=== PATIENT | female | born 1985 | race Caucasian/White ===

== ENCOUNTER 2022-08-14 07:35 | Outpatient (CLI) | payer OTHER, SELFPAY | END 2022-08-14 07:36 | disposition home or self-care (01) | LOC: NFLDREF 08-15 19:16 | PROVIDERS: PCP Family Medicine; Referring Provider Family Medicine; Visit Provider Family Medicine | DX: E78.5 Hyperlipidemia, unspecified (principal); E55.9 Vitamin D deficiency, unspecified; R79.89 Other specified abnormal findings of blood chemistry | CPT/HCPCS: 80053; 80061 ==

== ENCOUNTER 2022-11-20 08:54 | Outpatient (CLI) | payer OTHER, SELFPAY | END 2022-11-20 08:55 | disposition home or self-care (01) | PROVIDERS: PCP Family Medicine; Visit Provider Family Medicine | DX: R19.7 Diarrhea, unspecified (principal); R10.9 Unspecified abdominal pain; R79.89 Other specified abnormal findings of blood chemistry | CPT/HCPCS: 80053; 82150; 83690 ==

== ENCOUNTER 2023-04-08 14:55 | Outpatient (CLI) | payer OTHER, SELFPAY ==
--- NOTE | 2023-04-08 15:00 | CRLHL7_ITS ---
For Patients: As a result of the Century Cures Act, medical imaging exams and procedure reports are released immediately into your electronic medical record. You may view this report before your referring provider. If you have questions, please contact your health care provider. BILATERAL SCREENING MAMMOGRAM WITH COMPUTER-AIDED DETECTION AND TOMOSYNTHESIS TECHNIQUE: CC and MLO views were obtained. These mammographic images have been obtained using full-field digital technique. These mammographic images were interpreted with the benefit of computer-aided detection. Breast Tomosynthesis was used in this interpretation. COMPARISON FILM: 11/12/17. FINDINGS: There are scattered areas of fibroglandular density IMPRESSION: There is no radiographic evidence for malignancy. ASSESSMENT: BI-RADS Category 1: Negative RECOMMENDATION: Routine screening mammogram in 1 year. A lay language report of this examination will be provided to the patient. Ganga Cortes M.D. Diagnostic Radiologist [email or web address] FRED/Dictated by: Ganga Cortes MD @ 04/09/2023 11:57:00 AM (Electronically Signed)
== END 2023-04-08 14:56 | disposition home or self-care (01) ==
PROVIDERS: PCP Family Medicine; Visit Provider Family Medicine
DX: Z12.31 Encounter for screening mammogram for malignant neoplasm of breast (principal)
CPT/HCPCS: 77063; 77067

== ENCOUNTER 2024-03-13 07:35 | Outpatient (CLI) | payer OTHER, SELFPAY ==
--- OUTSIDE RECORDS SUMMARY | 2024-03-15 13:12 | XMS_ITS ---
Author Organization [facility] Address [address] [place] [address] Care Team Providers Care Magazine Publisher Name Role Phone Unavailable Unavailable Unavailable Surgery Details Not on file Complications Check Surgery Details section. Procedure Estimated Blood Loss Check Surgery Details section. Procedure Findings Check Surgery Details section. Procedure Specimens Taken Check Surgery Details section.
--- OUTSIDE RECORDS SUMMARY | 2024-03-15 13:12 | XMS_ITS | Referral Summary ---
Author Organization [facility] Address [address] [place] [address] Care Team Providers Care Hardware Press Operator Name Role Phone Unavailable Primary Care Provider Unavailabl e Source Comments Patient records contain information from all sites at [facility]. For routine questions regarding patient records, call [phone] during business hours, M-F 8:00 AM - 5:00 PM Central Time. Record requests for emergency care only can be directed to [phone] at any time.[facility] Allergies Active Allergy Reactions Criticality Noted Date Comments Vancomycin Hives (Reselect Reaction),Itching,Rash 10/23/2003 Medications fluticasone propionate (FLONASE) 50 mcg/actuation nasal spray Administer 1 spray into each nostril daily. Active Lactobacillus acidophilus (Probiotic) 10 billion cell capsule Take by mouth daily. 1 Active cholecalciferol, vitamin D3, 10 mcg (400 unit) capsule Take 25 mcg by mouth daily. 2 Active cetirizine (ZyrTEC) 5 mg tablet Take 5 mg by mouth daily. Active loperamide (IMODIUM A-D) 2 mg tablet Take 2 mg by mouth 4 (four) times a day as needed for diarrhea. Active Active Problems Problem Noted Date Diagnosed Date Pain Abdominal NOS 12/16/2022 Dyslipidemia 12/16/2022 Irritable Bowel Syndrome, Unspecified 12/16/2022 Anxiety 09/28/2017 Immunizations Name Administration Dates Next Due HepB, Unspecified 08/16/1996,01/19/1996,12/01/18 96 Influenza Split 02/24/2006 MMR 10/14/1994,02/16/1985,07/18/1984 SARS-COV-2 (COVID-19) - PFIZ ER (Discontinued)(12 years or older) 05/27/2020,05/03/2020 Td, (Adult) Unspecified 12/02/1995 influenza trivalent vaccine (6 months and older)(PF) 02/15/2024 influenza vaccine quad (FLUZ ONE/FLUARIX) (6 months and older)(PF) 02/16/2023,03/26/2021,02/13/2020 Social History Tobacco Use Types Packs/Day Years Used Date Smoking Tobacco: Former Cigarettes 0.3 2 0 04/26/2002 - 04/26/2004 Passive Smoke Exposure: Past Smokeless Tobacco: Never Tobacco Cessation:Counseling Given: Not Answered Alcohol Use Standard Drinks/Week Comments Yes 2 (1 standard drink = 0.6 oz pur e alcohol) Humiliation, Afraid, Rape, and Kick questionnair e Answer Date Recorded Within the last year, have y ou been afraid of your partner or ex-partner? No 12/09/2022 Within the last year, have y ou been humiliated or emotionally abused in other ways by your partner or ex-partner? No Within the last year, have y ou been kicked, hit, slapped, or otherwise physically hurt by your partner or ex-partner? No 12/09/2022 Within the last year, have y ou been raped or forced to have any kind of sexual activity by your partner or ex-partner? No 12/09/2022 Overall Financial Resource Strain (CARDIA) Answe r Date Recorded How hard is it for you to pa y for the very basics like food, housing, medical care, and heating? Not hard at all 12/09/2022 Exercise Vital Sign Answer Date Recorde d On average, how many days pe r week do you engage in moderate to strenuous exercise (like a brisk walk)? 2 days 12/09/2022 On average, how many minutes do you engage in exercise at this level? 60 min 12/09/2022 Hunger Vital Sign Answer Date Recorded Within the past 12 months, y ou worried that your food would run out before you got the money to buy more. Never true 12/10/19 23 Within the past 12 months, t he food you bought just didn't last and you didn't have money to get more. Never true 12/09/2022 PRAPARE - Transportation Answer Date Re corded In the past 12 months, has l ack of transportation kept you from medical appointments or from getting medications? No 11/24 In the past 12 months, has l ack of transportation kept you from meetings, work, or from getting things needed for daily living? No 12/09/2022 Nutrition Answer Date Recorded Nutrition: EVOO Fat Source Unknown 12/09 On average, how many serving s of fruits and vegetables do you eat per day (serving size is equal to 1 cup or approximately the size of a tennis ball)? 3-5 12/09/2022 Dental Answer Date Recorded Dental: Regular Dentist Yes 12/10/19 Employment Answer Date Recorded Employment status Employed and actively working without restrictions 12/09/2022 Housing Stability Answer Date Recorded What is your living situation today? I have a [facility] place to live 12/09/2022 Comments Unknown Sex and Gender Information Value Date Recorded Sex Assigned at Female 12/09/2022 5:24 PM CDT Legal Sex Female 9:44 AM [employer] Gender Identity Female 12/09/2022 5:24 PM CDT Sexual Orientation Straight 12/09/2022 5: 24 PM CDT Last Filed Vital Signs Vital Sign Reading Time Taken Comments Blood Pressure 114/72 12/16/2022 2:48 PM CDT Pulse 82 12/16/2022 2:48 PM CDT Temperature - - Respiratory Rate - - Oxygen Saturation - - Inhaled Oxygen Concentration - - Weight 72.2 kg (159 lb 2.8 oz) 07/14/2023 1:53 P M CDT Height 160.7 cm (5' 3.27) 07/14/2023 2:50 PM CD T Body Mass Index 27.96 07/14/2023 1:53 PM CDT Plan of Treatment Not on file Procedures Procedure Name Priority Date/Time Associated Diagnosis Comments HCV AB SCRN W/REFLEX TO HCV PCR, S Routine 12/16/2022 4:05 PM CDT Dilated Common Bile Duct Cancer Pancreas Family History from Last 3 Months or Most Recently Relevant to Health Maintenance Results * HCV Ab Scrn w/Reflex to HCV PCR, Serum (12/16/2022 4:05 PM CDT) HCV Ab Screen, S Negative Negative 12/17/2022 8:15 AM CDT [facility] Comment:Zoyzfx-ix-fyflqu rat io is <1.00. Blood (Blood, Venous) 12/16/2022 4:05 PM CDT 12/17/2022 6:49 AM CDT Ish Kerr M.D. LAB MICROBIOLOGY - BLOOD ORD ERABLES Final Result [facility] [address] [place] [address] [facility] [address] [place] [address] from Last 3 Months or Most Recently Relevant to Health Maintenance Insurance [employer]
--- OUTSIDE RECORDS SUMMARY | 2024-03-15 13:12 | XMS_ITS | Clinical Summary ---
Author Organization [facility] Address [address] [place] [address] Care Team Providers Care Hospitalist Medical Director Name Role Phone Unavailable Primary Care Provider Unavailabl e Source Comments Patient records contain information from all sites at [facility]. For routine questions regarding patient records, call [phone] during business hours, M-F 8:00 AM - 5:00 PM Central Time. Record requests for emergency care only can be directed to [phone] at any time.[facility] Allergies Active Allergy Reactions Criticality Noted Date [...] your living situation today? I have a [facility] place to live 12/09/2022 Comments Unknown Sex and Gender Information Value Date Recorded Sex Assigned at Female 12/09/2022 5:24 PM CDT Legal Sex Female 9:44 AM [employer] Gender Identity Female 12/09/2022 5:24 PM CDT [...] 07/14/2023 1:53 PM CDT Plan of Treatment Health Maintenance Due Date Last Done Comments HIV Screening 1985 Lipid (Cholesterol) Screening 1985 Mammogram 11/12/2018 11/12/2017 Cervical/Vaginal Cancer Screening 09/22/2020 09/22/2017 Depression Screening (Annual PHQ-2) 04/26/2023 COVID-19 Vaccine ( season) 2023 05/27/2020, 05/03/2020 DTaP,Tdap,and Td Vaccines (3 - Td or Tdap) 01/23/2025 01/23/2015, 12/02/1995 Hepatitis B Vaccines Completed 08/16/1996, 01/19/1996, 12/02/1995 Hepatitis C Screening Completed 12/16/2022 Influenza Vaccine Completed 02/15/2024, , 03/26/2021, Additional history exists HPV Vaccines Aged Out No longer eligi ble based on patient's age to complete this topic IPV Vaccines Aged Out No longer eligi ble based on patient's age to complete this topic Pneumococcal vaccine (0-64 years) Aged Out No longer eligible based on patient's age to complete this topic Procedures Procedure Name Priority Date/Time Associated Diagnosis [...] S Negative Negative 12/17/2022 8:15 AM CDT [facility] Comment:Cylbtp-ch-yhcinl rat io is <1.00. Blood (Blood, Venous) 12/16/2022 4:05 PM CDT 12/17/2022 6:49 AM CDT Ish Kerr M.D. LAB MICROBIOLOGY - BLOOD ORD ERABLES Final Result [facility] [address] [place] [address] [facility] [address] [place] [address] from Last 3 Months or Most Recently Relevant to Health Maintenance Insurance [employer]
== END 2024-03-13 07:36 | disposition home or self-care (01) ==
LOC: NFLDREF 03-15 13:10
PROVIDERS: PCP Family Medicine; Referring Provider Family Medicine; Visit Provider Family Medicine
DX: E78.5 Hyperlipidemia, unspecified (principal); E55.9 Vitamin D deficiency, unspecified
CPT/HCPCS: 80053; 80061; 82306

== ENCOUNTER 2024-04-12 15:17 | Outpatient (CLI) | payer OTHER, SELFPAY ==
--- NOTE | 2024-04-12 15:20 | CRLHL7_ITS ---
For Patients: As a result of the Century Cures Act, medical imaging exams and procedure reports are released immediately into your electronic medical record. You may view this report before your referring provider. If you have questions, please contact your health care provider. BILATERAL SCREENING MAMMOGRAM WITH COMPUTER-AIDED DETECTION AND TOMOSYNTHESIS TECHNIQUE: CC and MLO views were obtained. These mammographic images have been obtained using full-field digital technique. These mammographic images were interpreted with the benefit of computer-aided detection. Breast Tomosynthesis was used in this interpretation. COMPARISON FILM: 04/08/23, 11/12/17. FINDINGS: There are scattered areas of fibroglandular density. IMPRESSION: There is no radiographic evidence for malignancy. ASSESSMENT: BI-RADS Category 1: Negative RECOMMENDATION: Routine screening mammogram in 1 year. A lay language report of this examination will be provided to the patient. Ganga Cortes M.D. Diagnostic Radiologist [email or web address] SP/Dictated by: Ganga Cortes MD @ 04/13/2024 12:06:00 PM (Electronically Signed)
== END 2024-04-12 15:18 | disposition home or self-care (01) ==
LOC: MAMMO 15:17
PROVIDERS: PCP Family Medicine; Visit Provider Family Medicine
DX: Z12.31 Encounter for screening mammogram for malignant neoplasm of breast (principal)
CPT/HCPCS: 77063; 77067

== ENCOUNTER 2024-07-27 14:51 | Outpatient (CLI) | payer OTHER, SELFPAY | END 2024-07-27 14:52 | disposition home or self-care (01) | PROVIDERS: PCP Family Medicine; Visit Provider Family Medicine | DX: R00.2 Palpitations (principal) | CPT/HCPCS: 80048; 84443 ==

== ENCOUNTER 2024-09-05 08:20 | Outpatient (CLI) | payer OTHER, SELFPAY | END 2024-09-05 08:21 | disposition home or self-care (01) | LOC: NFLDREF 09-13 00:08 | PROVIDERS: PCP Family Medicine; Referring Provider Family Medicine; Visit Provider Family Medicine | DX: E78.5 Hyperlipidemia, unspecified (principal); R73.01 Impaired fasting glucose; E55.9 Vitamin D deficiency, unspecified; K76.0 Fatty (change of) liver, not elsewhere classified | CPT/HCPCS: 80053; 80061; 82306 ==

== ENCOUNTER 2024-12-07 07:43 | Outpatient (CLI) | payer OTHER, SELFPAY | END 2024-12-07 07:44 | disposition home or self-care (01) | LOC: NFLDREF 12-11 15:56 | PROVIDERS: PCP Family Medicine; Referring Provider Family Medicine; Visit Provider Family Medicine | DX: E55.9 Vitamin D deficiency, unspecified (principal); E78.5 Hyperlipidemia, unspecified; K76.0 Fatty (change of) liver, not elsewhere classified | CPT/HCPCS: 80053; 80061; 82306 ==

== ENCOUNTER 2025-04-05 08:37 | Outpatient (CLI) | payer OTHER, SELFPAY | END 2025-04-05 08:38 | disposition home or self-care (01) | LOC: NFLDREF 04-11 01:52 | PROVIDERS: PCP Family Medicine; Referring Provider Family Medicine; Visit Provider Family Medicine | DX: E78.5 Hyperlipidemia, unspecified (principal); E55.9 Vitamin D deficiency, unspecified | CPT/HCPCS: 80053; 80061; 82306 ==

== ENCOUNTER 2025-04-16 08:10 | Outpatient (CLI) | payer OTHER, SELFPAY ==
--- NOTE | 2025-04-16 08:15 | CRLHL7_ITS ---
For Patients: As a result of the Century Cures Act, medical imaging exams and procedure reports are released immediately into your electronic medical record. You may view this report before your referring provider. If you have questions, please contact your health care provider. INDICATION: BILATERAL SCREENING MAMMOGRAM, ASYMPTOMATIC 40 Y/O FEMALE COMPARISON: 04/12/2024, 04/08/2023 TECHNIQUE: Digital mammogram in CC and MLO projections including computer-aided detection (CAD) and tomosynthesis. BREAST COMPOSITION: The breasts are heterogeneously dense, which may obscure small masses. FINDINGS: No suspicious findings. ASSESSMENT: BI-RADS 1 Negative RECOMMENDATION: Annual screening mammogram. A lay language report of this examination will be provided to the patient. Dictated by: Jenae Tristan MD @ 04/17/2025 10:01:39 (Electronically Signed)
== END 2025-04-16 08:11 | disposition home or self-care (01) ==
LOC: MAMMO 08:11
PROVIDERS: PCP Family Medicine; Visit Provider Family Medicine
DX: Z12.31 Encounter for screening mammogram for malignant neoplasm of breast (principal); R92.333 Mammographic heterogeneous density, bilateral breasts
CPT/HCPCS: 77063; 77067